=== PATIENT | female | born 1965 | race Two or more races ===

== ENCOUNTER 2020-10-20 20:41 | Emergency (ER) | payer OTHER ==
[~2020-10-20] VITALS: Ht 157.5 cm; Wt 69.0 kg
[2020-10-20] MEDS ORDERED: ONDANSETRON 2MG/ML, 2ML ONE (22:57)
[2020-10-20] MEDS ORDERED: MORPHINE SULFATE 4 MG/ML, 1ML ONE (22:58)
[2020-10-20] MEDS ORDERED: SODIUM CHLORIDE FLUSH 10ML SYR IVF ONE (23:00)
[2020-10-20] MEDS ORDERED: MORPHINE SULFATE 4 MG/ML, 1ML IVPush PRN (23:00)
[2020-10-20] MEDS ORDERED: OMNIPAQUE 350 MG/ML, 100ML BOTTLE ONE (23:00)
[2020-10-20] MEDS ORDERED: LACTATED RINGERS 1,000 ML IV SCH (23:00)
[2020-10-20] MEDS ORDERED: ONDANSETRON 2MG/ML, 2ML IVPush ONE (23:00)
[2020-10-20 23:24] LABS: BASOPHILS % (AUTO) 1 % (0-1); EOSINOPHILS % (AUTO) 4 % (1-7); LYMPHOCYTES % (AUTO) 24 % (22-44); MD NO; MEAN CORPUSCULAR HEMOGLOBIN 33.8 pg (27.0-34.8); MEAN CORPUSCULAR HGB CONC 34.4 g/dL (32.4-35.8); MEAN PLATELET VOLUME 8.6 fL (7.4-10.4); MONOCYTES % (AUTO) 8 % (2-9); NEUTROPHILS % (AUTO) 63 % (42-75); PLATELET COUNT 234 x10^3/uL (130-400); RED BLOOD COUNT 4.52 x10^6/uL (3.82-5.3)
[2020-10-20 23:33] LABS: ALBUMIN 3.8 g/dL (3.4-5.0); ANION GAP 7 mmol/L (5-15); CALCIUM 8.7 mg/dL (8.5-10.1); CHLORIDE 102 mmol/L (98-107)
[2020-10-20 23:37] LABS: ALANINE AMINOTRANSFERASE 29 U/L (12-78); ALKALINE PHOSPHATASE 113 U/L (45-117); BILIRUBIN,TOTAL 0.3 mg/dL (0.2-1.0); CREATININE 0.63 mg/dL (0.55-1.02); TOTAL PROTEIN 7.2 g/dL (6.4-8.2)
[2020-10-21 00:06] LABS: MICROSCOPIC INDICATED
[2020-10-21] MEDS ORDERED: MAALOX/HYOSCYAMINE/LIDOCAINE 45 ML BTL PO ONE (01:30)
[2020-10-21] MEDS ORDERED: LOPERAMIDE 2 MG CAPSULE PO ONE (01:30)
[2020-10-21 01:39] VITALS: BP 117/79
[2020-10-21] MEDS ORDERED: LOPERAMIDE 2 MG CAPSULE ONE (01:39)
[2020-10-21] MEDS ORDERED: MAALOX/HYOSCYAMINE/LIDOCAINE 45 ML BTL ONE (01:39)
== END 2020-10-21 02:08 | disposition home or self-care (01) ==
LOC: ED 10-21 01:37
DX: A08.4 Viral intestinal infection, unspecified (principal); R10.12 Left upper quadrant pain; M54.5 Low back pain; R11.0 Nausea
CPT/HCPCS: 36415; 74177; 80053; 81001; 83690; 85025; 87086; 96374; 96375; 99285; J2270; J2405; J7120; Q9967; 96365